=== PATIENT | male | born 1950 | race Caucasian/White ===

== ENCOUNTER 2018-04-13 10:28 | Emergency (ER) | payer OTHER ==
--- NOTE | 2018-04-13 10:35 | ED PDOC ---
HPI: Chest Pain Time Seen by Provider: 04/13/18 10:32 History Per: Patient Onset/Duration Of Symptoms: Hrs (1) Current Symptoms Are (Timing): Still Present Severity: Moderate Quality: Pressure Associated Symptoms: Syncope Additional Complaint(s): Chest discomfort assoc with headache and dizziness this AM. Took Metoprolol 50 mg this AM thinking BP was elevated. Takes daily ASA. Denies SOB. Past Medical History - Medical History PMH: AMI-NSTEMI, Diabetes, HTN - Family History Family History: States: Unknown Family Hx - Home Medications Home Medications: Ambulatory Orders Medication Instructions Recorded Lisinopril [Zestril] 1 tab PO DAILY 08/01/16 Metoprolol Tartrate [Lopressor] 1 tab PO DAILY 08/01/16 Sitagliptin Phos/Metformin HCl 1 tab PO BID 08/01/16 [Janumet 50-1,000 mg Tablet] - Allergies Allergies/Adverse Reactions: Allergies Allergy/AdvReac Type Severity Reaction Status Date / Time No Known Allergies Allergy Verified 08/01/16 09:02 Review of Systems ROS Statement: Except As Marked, All Systems Reviewed And Found Negative Cardiovascular: Positive for: Chest Pain Neurological: Positive for: Headache, Dizziness Physical Exam - Reviewed Nursing Documentation Reviewed: Yes Vital Signs Reviewed: Yes - Physical Exam Appears: Positive for: Non-toxic, No Acute Distress Head Exam: Positive for: ATRAUMATIC, NORMAL INSPECTION, NORMOCEPHALIC Skin: Positive for: Normal Color, Warm, DRY Eye Exam: Positive for: EOMI, Normal appearance, PERRL ENT: Positive for: Normal ENT Inspection Neck: Positive for: Normal, Painless ROM Cardiovascular/Chest: Positive for: Regular Rate, Rhythm Respiratory: Positive for: CNT, Normal Breath Sounds Gastrointestinal/Abdominal: Positive for: Normal Exam, Soft Back: Positive for: Normal Inspection Extremity: Positive for: Normal ROM Neurologic/Psych: Positive for: Alert, Oriented - Laboratory Results Result Diagrams: 04/13/18 10:50 04/13/18 10:50 Medical Decision Making Medical Decision Making: Advised 24 hr obs as pt has multiple risk factors for ACS and recurrent AR and and stroke. Pt understands risk but wishes to go home ad f/u with PMD. Advised immediate return to ED if chest pain or dizziness recurrs. Disposition - Clinical Impression Clinical Impression: Chest pain - Patient ED Disposition Is Patient to be Admitted: No Counseled Patient/Family Regarding: Studies Performed, Diagnosis, Need For Followup - Disposition Disposition: Routine/Home Disposition Time: 12:26 Condition: FAIR Instructions: Chest Pain
[2018-04-13 10:40] VITALS: O2SAT 100
--- NOTE | 2018-04-13 11:23 | RAD ---
Date of service: 04/13/2018 HISTORY: cough COMPARISON: 08/04/2017 FINDINGS: LUNGS: No active pulmonary disease. PLEURA: No significant pleural effusion identified, no pneumothorax apparent. CARDIOVASCULAR: No aortic atherosclerotic calcification present OSSEOUS STRUCTURES: No significant abnormalities. VISUALIZED UPPER ABDOMEN: Normal. OTHER FINDINGS: None. IMPRESSION: No active disease.
[2018-04-13 11:45] LABS: BASO % 0.4 % (0.0-2.0); EOS # 0.2 K/uL (0.0-0.7); EOS % 3.3 % (0.0-4.0); HEMOGLOBIN 12.5 g/dL (12.0-18.0); LYMPH # 2.9 K/uL (1.0-4.3); LYMPH % 40.1 % (20.0-40.0); MEAN CELL VOLUME 90.9 fl (80.0-94.0); MEAN CORPUSCULAR HEMOGLOBIN 31.3 pg (27.0-31.0); MEAN CORPUSCULAR HGB CONC 34.4 g/dL (33.0-37.0); MEAN PLATELET VOLUME 9.5 fl (7.2-11.7); MONO # 0.9 K/uL (0.0-0.8); MONO % 12.3 % (0.0-10.0); NEUT # 3.1 K/uL (1.8-7.0); NEUT % 43.9 % (50.0-75.0); NRBC % 0.1 % (0.0-0.0); RBC 4.01 Mil/uL (4.40-5.90); RED CELL DISTRIBUTION WIDTH 13.7 % (11.5-14.5); WHITE BLOOD COUNT 7.2 K/uL (4.8-10.8)
[2018-04-13 12:08] LABS: ALB/GLOB RATIO 1.2 (1.0-2.1); ALT/SGPT 57 U/L (21-72); AST/SGOT 54 U/L (17-59); BLOOD UREA NITROGEN 17 mg/dl (9-20); CALCIUM 9.3 mg/dL (8.4-10.2); GFR NON-AFRICAN AMERICAN > 60
[2018-04-13 12:50] VITALS: BP 163/85; PULSE 85; RESP 18; TEMP 97.9
--- NOTE | 2018-04-13 21:04 | CARD ---
APPROVED REPORT Date of service: 04/13/2018 EKG Measurement Heart [id number] <Conclusion> Normal sinus rhythm Possible Inferior infarct, age undetermined Abnormal ECG
== END 2018-04-13 12:35 | disposition home or self-care (01) ==
LOC: H.ER 10:28
DX: R07.89 Other chest pain (principal); E11.9 Type 2 diabetes mellitus without complications; I10 Essential (primary) hypertension; I25.2 Old myocardial infarction

== ENCOUNTER 2018-09-08 13:08 | Emergency (ER) | payer OTHER ==
[2018-09-08 13:26] VITALS: BP 129/73; PULSE 60; RESP 17; TEMP 98; O2SAT 99
--- NOTE | 2018-09-08 13:32 | ED PDOC ---
HPI: General Adult Time Seen by Provider: 09/08/18 13:27 Chief Complaint (Nursing): Medical Clearance Chief Complaint (Provider): Pertussis Exposure History Per: Patient History/Exam Limitations: no limitations Severity: None Additional Complaint(s): 68 year old male with a past medical history of diabetes and hypertension presents to the ED for evaluation status post pertussis exposure. 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 Patient denies having any symptoms. Tetanus not up to date. Patient was sent from [facility]. PMD: Darrick Morgan MD Past Medical History Reviewed: Historical Data, Nursing Documentation, Vital Signs Vital Signs: Last Vital Signs Temp 98 F 09/08/18 13:24 Pulse 60 09/08/18 13:24 Resp 17 09/08/18 13:24 BP 129/73 09/08/18 13:24 Pulse Ox 99 09/08/18 13:24 JUAN CARLOS Report Viewed: Yes - Medical History PMH: Diabetes, HTN - Surgical History Surgical History: Coronary Stent - Family History Family History: States: Unknown Family Hx - Immunization History Hx Tetanus Toxoid Vaccination: No - Home Medications Home Medications: Ambulatory Orders Medication Instructions Recorded Lisinopril [Zestril] 1 tab PO DAILY 08/01/16 Metoprolol Tartrate [Lopressor] 1 tab PO DAILY 08/01/16 Sitagliptin Phos/Metformin HCl 1 tab PO BID 08/01/16 [Janumet 50-1,000 mg Tablet] Azithromycin 250 mg PO DAILY #6 tablet 09/08/18 - Allergies Allergies/Adverse Reactions: Allergies Allergy/AdvReac Type Severity Reaction Status Date / Time No Known Allergies Allergy Verified 09/08/18 13:26 Review of Systems ROS Statement: Except As Marked, All Systems Reviewed And Found Negative Physical Exam - Reviewed Nursing Documentation Reviewed: Yes Vital Signs Reviewed: Yes - Physical Exam Comments: GENERAL APPEARANCE: Patient is awake, alert, oriented x 3, resting comfortably, in no acute distress. SKIN: Warm, dry; (-) cyanosis NECK: Supple, FROM HEART AND CARDIOVASCULAR: (-) irregularity CHEST AND RESPIRATORY: Lungs clear to auscultation bilaterally (-) rales, (-) rhonchi, (-) wheezes; breath sounds equal. Respirations even and nonlabored, speaking in full sentences. NEURO AND PSYCH: Mental status as above. Gait: steady. Speech: clear. (-) facial asymmetry - ECG O2 Sat by Pulse Oximetry: 99 (RA) Pulse Ox Interpretation: Normal Medical Decision Making Medical Decision Makin:25 Clinical impression: 68 year old male with pertussis exposure and need for TDaP Initial plan: * adacel (10-64 yrs) 0.5 ml IM once Given patient is asymptomatic, patient is stable for discharge with Rx for Azithromycin. Vitals stable. Diagnostic results d/w the patient in great detail. Diagnosis of pertussis exposure d/w the patient. Based on history, exam and diagnostic results, plan will be for outpatient follow up with PMD. Patient instructed to follow-up with pmd / referral provided / the clinic in 1- 2 days without fail. Advised to take medication as prescribed. Return to the emergency room at any time for any new or worsening symptoms. Patient states he fully agrees with and understands discharge instructions. States that he agrees with the plan and disposition. Verbalized and repeated discharge instructions and plan. I have given the patient opportunity to ask any additional questions. ---- Scribe Attestation: Documented by Carlene Rae, acting as a scribe for Carlene Kumar Provider Scribe Attestation: All medical record entries made by the Scribe were at my direction and personally dictated by me. I have reviewed the chart and agree that the record accurately reflects my personal performance of the history, physical exam, medical decision making, and the department course for this patient. I have also personally directed, reviewed, and agree with the discharge instructions and disposition. Disposition - Clinical Impression Clinical Impression: Pertussis exposure, Need for Tdap vaccination - Patient ED Disposition Is Patient to be Admitted: No Counseled Patient/Family Regarding: Studies Performed, Diagnosis, Need For Followup, Rx Given - Disposition Referrals: Darrick Morgan MD [Staff Provider] - Disposition: Routine/Home Disposition Time: 13:45 Condition: STABLE Additional Instructions: The emergency medical care you received today was directed at your acute symptoms. If you were prescribed any medication, please fill it and take as directed. It may take several days for your symptoms to resolve. Return to the Emergency Department if your symptoms worsen, do not improve, or if you have any other problems. Please contact your doctor in 2 days for re-evaluation and follow up / or call one of the physicians/clinics you have been referred to that are listed on the Patient Visit Information form that is included in your discharge packet. Bring any paperwork you were given at discharge with you along with any medications you are taking to your follow up visit. Our treatment cannot replace ongoing medical care by a primary care provider (PCP) outside of the emergency department. Prescriptions: Azithromycin 250 mg PO DAILY #6 tablet Instructions: Pertussis, Adult, Tdap Vaccine Forms: [facility] (Samoan) Print Language: URDU - POA Present On Arrival: None
[2018-09-08] MEDS: Tdap Vaccine 0.5 ml Vial (10-64 yrs) IM ONE (13:38)
== END 2018-09-08 14:00 | disposition home or self-care (01) ==
LOC: H.ER 13:08
DX: Z20.818 Contact with and (suspected) exposure to other bacterial communicable diseases (principal); Y99.0 Civilian activity done for income or pay; E11.9 Type 2 diabetes mellitus without complications; I10 Essential (primary) hypertension; Z95.5 Presence of coronary angioplasty implant and graft